=== PATIENT | female | born 1990 | race Hispanic/Latino ===

== ENCOUNTER 2020-02-11 17:03 | Day surgery (SDC) | payer MEDICAID, OTHER ==
[2020-02-11 18:06] VITALS: BP 100/60; TEMP 98.7; BMI 26.3
[2020-02-11] MEDS ORDERED: hydrALAZINE 20 MG/ML VIAL SLOW IVP PRN (18:45)
--- NOTE | 2020-02-11 19:10 | PDOC.FPROB ---
FMR OB H&P: HPI - History of Present Illness Chief Complaint: Dysuria History of Present Illness: 29 y/o @ 22 wks presents to OB triage today due to dysuria which began yesterday. She states that she noticed pink-tinged blood on the toilet paper whenever she wiped. Today her symptoms still continued. She denied having clots or heavy bleeding, fever/chills, vaginal discharge, LOF, itching, vaginal pressure, N/V/D, suprapubic pain, flank pain, abdominal pain, or hematachezia. She endorsed movement and denied having complications so far in this . Primary Care Physician: [facility] FMR OB H&P: Current - Care : 3 Para: 2 Gestational age: 22 weeks Due date: 06/16/2020 FMR OB H&P: History - Past Medical History PMH: Gallstones - OB History OB History: 1st - 2nd - CSX due to distress *both uncomplicated - Surgical History Sx History: Prior CSX - Social History Social History: Denied smoking, tobacco, drug use - Family History Family History: Non contributory FMR OB H&P: Medications - Current Home Medications: Medication Instructions Recorded Confirmed Type Nitrofurantoin Monohyd/M-Cryst 100 mg PO BID #10 cap 02/11/20 Rx [Macrobid] No122/Iron/Folic Acid 1 each PO DAILY 02/11/20 02/11/20 History [ Multi Tablet] Allergies/Adverse Reactions: Allergies Allergy/AdvReac Type Severity Reaction Status Date / Time No Known Allergies Allergy Unverified 02/11/20 18:07 FMR OB H&P: ROS - Review of Systems General: denies: fever/chills Eyes: denies: vision changes Cardiovascular: denies: chest pain, palpitation Respiratory: denies: cough, shortness of breath Gastrointestinal: denies: abdominal pain, bloating, nausea, vomiting, diarrhea, constipation, bright red blood Genitourinary (Female): reports: dysuria. denies: vaginal discharge, contractions, vaginal pressure FMR OB H&P: Vital Signs - Maternal Vital signs: Vital Signs - First Documented Temp Pulse Resp BP 98.7 F 73 16 100/60 02/11/20 17:35 02/11/20 17:35 02/11/20 17:35 02/11/20 17:35 - Heart Tones Baseline: 140 FMR OB H&P: Physical Exam - Physical Exam General: NAD HEENT: normocephalic and atraumatic Heart: RRR General: CTAB Abdomen: soft, gravid FMR OB H&P: A/P - Problem List (1) 22 weeks gestation of Status: Acute Code(s): Z3A.22 - 22 WEEKS GESTATION OF (2) Dysuria during in second trimester Status: Acute Code(s): O26.892 - OTH RELATED CONDITIONS, SECOND TRIMESTER; R30.0 - DYSURIA Disposition: ## Dysuria during , second trimester -symptoms seems urinary in naturevs. vaginal bleeding - survey on 01/28 @ [facility] showed placenta in posterior position -clean catch U/A pending results ## 22 wks gestation of -pt follows up with [facility] - Survey 01/28 showed normal anatomy, hadlock 87.7% -this complicated by hx of CSX and latent TB (according to [facility] notes) -prior pregnancies uncomplicated Will continue to monitor pt. Will await U/A results. Discussion: Date/Time: 02/11/201902 This H&P was discussed with Dr. Pace and Dr. White who agree with the above documentation and plan. Addendum - Attending - Attending Attestation Date/Time: 02/12/20744 I personally evaluated the patient and discussed the management with Dr. Austin on 02/11/2020 I agree with the History, Examination, Assessment and Plan documented above with any addition or exceptions noted below - 29 yo female @22 weeks presents c/o dysuria and small amount blood when wiping after urination since yesterday. Denies any fever, flank or abdominal pain. (+) FM. Afebrile VSS Exam repeated nby me and agree with resident's findings. Labs: U/A- tr protein, 3+ blood, >50RBC, no bacteria or WBC. Renal USG- normal kidneys; no hydronephrosis. A/P: 1) Hematuria and dysuria- will send urine for culture; will treat empirically for UTI given patient's symptoms and d/c abx if culture negative. D/c home.
[2020-02-11 19:13] LABS: Bacteria/HPF None Seen HPF (None Seen); Bilirubin Negative (Negative); Blood, Urine 3+ (Negative); Clarity Turbid (Clear); Glucose, Urine (Dipstick) Normal (Negative); Ketone, Urine Negative (Negative); Leukocyte 25 Leu/uL (Negative); Nitrite Negative (Negative); Protein, Urine (Dipstick) 30 mg/dL (Neg-Trace); RBC/HPF Greater than 50 HPF (0-3); Specific Gravity, Urine 1.023 (1.002-1.036); Squamous Epithelial 0-3 HPF (0-3); Urobilinogen Normal mg/dL (Less than 2); WBC/HPF 0-3 HPF (0-3); pH, Urine 6.5 (5.0-9.0)
--- NOTE | 2020-02-11 20:23 | PDOC.BPN ---
- Brief Progress Note Pt's U/A came back. Showed 3+ blood, 25 leukocyte esterase, and 30 protein. Did not show bacteria, nitrites, or WBCs. Pt denied flank pain/CVA tenderness. Will order renal/bladder U/S to investigate hematuria.
--- NOTE | 2020-02-11 21:25 | ULT ---
RENAL ULTRASOUND: History: Hematuria. FINDINGS: Both kidneys have a normal sonographic appearance. No evidence of hydronephrosis or renal mass. Urina ry bladder is distended and appears normal. Bilateral ureteral jets are identified. IMPRESSION: Unremarkable renal ultrasound. POS: [facility]
--- NOTE | 2020-02-11 21:32 | PDOC.BPN ---
- Brief Progress Note Renal U/S results came back. Unremarkable. No hydronephrosis or masses. Normal sonographic apperance. Will order urine culture and d/c with antibiotics.
== END 2020-02-11 22:15 | disposition home or self-care (01) ==
LOC: ERS 17:03 → L&D/OP 17:04 → EDSTATUS 18:24 → L&D/OP 18:25
PROVIDERS: ATTEND Family Medicine
DX: O26.892 Other specified pregnancy related conditions, second trimester (principal); R30.0 Dysuria; R31.9 Hematuria, unspecified; O34.219 Maternal care for unspecified type scar from previous cesarean delivery; Z3A.22 22 weeks gestation of pregnancy
CPT/HCPCS: 76770; 81001; 87086

== ENCOUNTER 2020-04-20 23:11 | Observation (INO) | payer OTHER, SELFPAY ==
--- NOTE | 2020-04-21 00:10 | PDOC.FPROB ---
FMR OB H&P: HPI - History of Present Illness Chief Complaint: abdominal pain History of Present Illness: Pt is a 29yo @ 31.6wks who presents with 2 days of abdominal pain. Pain located in RUQ and radiates to back. Associated with nausea and vomiting. Worse with certain foods, coke and tamales. Pain comes and goes, and described as sharp. Was seen in ED in November and had RUQ US that showed gallstones/sludge. Recommended she take tylenol for pain. She has been having pain off and on since then, but today it is worse and tylenol is not helping. Had diarrhea 2 weeks ago. +FM, no contractions. No vaginal bleeding or LOF. Primary Care Physician: [facility] FMR OB H&P: Current - Care : 3 Para: 2 Gestational age: 31.6wks Due date: 09/10/2019 Dating Criteria: 10.1 wk sono - OB Labs Blood type: A RH: positive Antibody Screen: negative HIV: negative RPR: negative HepBsAg: negative Rubella: immune Gonorrhea: negative Chlamydia: negative Pap Smear: 11/12/2019 normal 1 hour gtt: 2 hr 76/161/110 H&H: 14/39.7 Platelets: 334 on 11/12/19 - Additional Ultrasound Additional: 12/25/19 US RUQ: hepatic steatosis, hepatomegaly, GB sludge and/or stones, no biliary duct dilatation FMR OB H&P: History - Past Medical History PMH: none - OB History OB History: , this diagnosed with gallstones/sludge in November - 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 NILM 10/2019 - Surgical History Sx History: CS x1 - Social History Social History: no T/A/D - Family History Family History: non-contributory FMR OB H&P: Medications - Current Home Medications: Medication Instructions Recorded Confirmed Type Nitrofurantoin Monohyd/M-Cryst 100 mg PO BID #10 cap 02/11/20 Rx [Macrobid] No122/Iron/Folic Acid 1 each PO DAILY 02/11/20 02/11/20 History [ Multi Tablet] Allergies/Adverse Reactions: Allergies Allergy/AdvReac Type Severity Reaction Status Date / Time No Known Allergies Allergy Verified 04/21/20 00:37 FMR OB H&P: ROS - Review of Systems General: denies: fever/chills, weight/appetite/sleep changes Eyes: reports: vision changes, floaters ENT: denies: nasal congestion, rhinorrhea Cardiovascular: denies: chest pain, palpitation, edema Respiratory: denies: cough, congestion, shortness of breath Gastrointestinal: reports: abdominal pain, nausea, vomiting. denies: diarrhea Genitourinary (Female): denies: dysuria, vaginal bleeding, contractions Musculoskeletal: denies: pain, stiffness Neurologic: reports: headache. denies: numbness, syncope Integumentary: denies: itching, rash Breast: denies: pain/tenderness Endocrine: denies: polydipsia, polyuria Hematologic/Lymphatic: denies: prolonged or excessive bleeding Psychological: denies: depression, anxiety FMR OB H&P: Vital Signs - Maternal Vital signs: BP 107/67, HR 67 - Heart Tones Baseline: 130 Variability: moderate Acceleration: present Deceleration: absent Category: category 1 [place] contractions every: none FMR OB H&P: Physical Exam - Physical Exam General: NAD, awake, alert and oriented HEENT: normocephalic and atraumatic, conjunctiva clear, no scleral icterus, grossly normal vision, grossly normal hearing Neck: supple, FROM Chest: non-tender to palpation Heart: RRR, normal S1/S2, no murmurs/rubs/gallops, no edema General: CTAB, no respiratory distress, no wheezing Abdomen: soft, gravid Deviation from normal: positive Campa's sign Musculoskeletal: normal gait and station, pulses present Neurological: cranial nerves II through XII intact, no focal deficit Skin: no rash Lymphatic: no unusual bruising or bleeding Psychiatric: intact recent and remote memory, normal mood and affect FMR OB H&P: A/P Discussion: Date/Time: 04/21/20 0009 #Cholestasis vs Cholelithiasis -hx of US 11/2019 showing gallstone/sludge -worsening of pain, N/V, PE +campa's sign -pending CBC and CMP -RUQ US ordered to evaluate for choledocholithiasis -BP normotensive, not likely pre-E -zofran for nausea, tylenol 1000mg and morphine 2mg for pain #sIUP - @ 31.6wks by 10.1wk sono -T Cat 1: 130/mod shantanu/+accel, no decel; no contractions -continue routine outpatient f/u This H&P was discussed with Dr. Bailey and Dr. Gama who agree with the above documentation and plan. Addendum - Attending - Attending Attestation Date/Time: 04/21/204 I personally evaluated the patient and discussed the management with Dr. Bailey and resident staff. Will admit for pain control and General Surgery consult in AM. I agree with the History, Examination, Assessment and Plan documented above.
[2020-04-21] MEDS ORDERED: hydrALAZINE 20 MG/ML VIAL SLOW IVP PRN ×2 (00:20→02:18)
[2020-04-21] MEDS ORDERED: Acetaminophen 500 MG TAB PO SCH (00:30)
[2020-04-21] MEDS ORDERED: Ondansetron PF 4 MG/2 ML Vial IVP SCH (00:30)
[2020-04-21 00:37] VITALS: BMI 28.1
[2020-04-21] MEDS ORDERED: Lactated Ringer's 1,000 ML IV SCH ×2 (00:45→02:30)
[2020-04-21] MEDS ORDERED: Morphine 4 MG/ML VIAL SLOW IVP SCH (00:45)
[2020-04-21 01:03] LABS: ALT (SGPT) 44 U/L (8-55); AST (SGOT) 50 U/L (5-34); Albumin 3.1 g/dL (3.5-5.0); Alkaline Phosphatase 158 U/L (40-110); Anion Gap 14 mmol/L (10-20); BUN (Urea Nitrogen) 6 mg/dL (7.0-18.7); Bilirubin, Total 2.2 mg/dL (0.2-1.2); Calc. Creatinine Clearance 128 mL/min (70-130); Calcium 8.4 mg/dL (7.8-10.44); Carbon Dioxide 20 mmol/L (22-29); Chloride 107 mmol/L (98-107); Estimated GFR-MDRD Greater than 90; Globulin 2.9 g/dL (2.4-3.5); Glucose 89 mg/dL (70-105); Potassium 3.1 mmol/L (3.5-5.1); Sodium 138 mmol/L (136-145)
[2020-04-21 01:16] LABS: Band 15 % (5-11); Hemoglobin 11.1 g/dL (12.0-16.0); Lymphocytes 15 % (21-51); MDiff Complete? YES; Mean Corpuscular HGB CONC 34.5 g/dL (32.0-36.0); Mean Corpuscular Hemoglobin 30.7 pg (27.0-31.0); Mean Platelet Volume 8.4 fL (7.4-10.4); Monocytes 7 % (0-10); Neutrophil 62 % (42-75); Platelet Count 257 thou/uL (130-400); RBC Distribution Width 12.3 % (11.5-14.5); White Blood Cell (WBC) Count 8.7 thou/uL (4.8-10.8)
[2020-04-21] MEDS ORDERED: Promethazine HCl 25 MG/ML VIAL IM PRN (02:18)
[2020-04-21] MEDS ORDERED: Acetaminophen 500 MG TAB PO PRN (02:18)
[2020-04-21] MEDS ORDERED: Ondansetron PF 4 MG/2 ML Vial IVP PRN (02:18)
[2020-04-21] MEDS ORDERED: Morphine 4 MG/ML VIAL SLOW IVP PRN ×2 (02:18→02:37)
[2020-04-21] MEDS ORDERED: Morphine 2 MG/ML VIAL SLOW IVP PRN (02:25)
--- NOTE | 2020-04-21 02:47 | PDOC.EVN ---
Event Note - Event Note Event Note: 29yo @ 32.0wks who presents with abdominal pain. A/P #Choledocholithiasis -Spoke with US tech. 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 Alfaro. I agree with the History, Examination, Assessment and Plan documented above.
--- NOTE | 2020-04-21 06:49 | PDOC.OBAPN ---
R OB AP PN: Sub - Interval History Hospital Day: 1 Chief Complaint: RUQ pain Indentification: 29yo @ 32wks EGA. Interval History: Feeling much better this morning. R OB AP PN: Obj - Maternal Vital signs: Selected Entries 04/21/20 00:29 Temperature 97.8 F Pulse Rate 67 Blood Pressure 107/67 [Semi-Fowlers] Respiratory 18 Rate O2 Sat by Pulse 99 Oximetry Oxygen Delivery Room Air Method [facility] OB AP PN: Exam - Physical Exam General: NAD, awake, alert and oriented HEENT: normocephalic and atraumatic, MMM, grossly normal vision, grossly normal hearing Neck: supple, FROM, trachea midline Heart: RRR, normal S1/S2 General: CTAB, no respiratory distress, good air movement Abdomen: soft, gravid, non-tender Skin: no rash, good tugor Lymphatic: no unusual bruising or bleeding, no purpura, no petechia Psychiatric: intact recent and remote memory, good judgement and insight, normal mood and affect [facility] OB AP PN: Data - Labs Lab results: Laboratory Results - last 24 hr 04/21/20 04/21/20 04/21/20 00:35 00:35 00:35 WBC 8.7 RBC 3.60 L Hgb 11.1 L Hct 32.0 L MCV 89.0 MCH 30.7 MCHC 34.5 RDW 12.3 Plt Count 257 MPV 8.4 Neutrophils % (Manual) 62 Band Neuts % (Manual) 15 H Lymphocytes % (Manual) 15 L Monocytes % (Manual) 7 Basophils % (Manual) 1 Sodium 138 Potassium 3.1 L Chloride 107 Carbon Dioxide 20 L Anion Gap 14 BUN 6 L Creatinine 0.69 Estimated GFR (MDRD) Greater than 90 Glucose 89 Calcium 8.4 Total Bilirubin 2.2 H AST 50 H ALT 44 Alkaline Phosphatase 158 H Serum Total Protein 6.0 Albumin 3.1 L Globulin 2.9 Albumin/Globulin Ratio 1.1 L Lipase 23 - Imaging Imaging: No evidence of cholelithiasis. Gallbladder wall thickened with trace pericholecystic fluid. Mild dilation of the common bile duct. R OB AP PN: A/P Disposition: Stable Discussion: Date/Time: 04/21/20 0649 A/P Acute acalculous cholecystitis: -RUQ US- GB wall thickening, pericholecystitic fluid, CBD dilated to 7-8mm, no stones seen, +Campa's sign -Labs: WBC 8.7, T bili 2.2, AST 50 -Will consult gen surg this am. 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 Gama who agrees with the above documentation and plan. Signature: Celso HEATH Addendum - Attending - Attending Attestation Date/Time: 04/21/20 7979 I personally evaluated the patient and discussed the management with Dr. Gill. I agree with the History, Examination, Assessment and Plan documented above.
--- NOTE | 2020-04-21 07:19 | ULT ---
PRELIMINARY REPORT/[facility]/EMERGENCY AFTER HOURS PROCEDURE: This report was discussed with Ariadna Curiel RN by Adeline Herrera on Apr 21, 2020 03:04:00 CDT. Sander kothari electronically signed by Adeline Herrera on April 21, 2020 3:03:56 AM CDT EXAM: US Abdomen Limited, Right Upper Quadrant. CLINICAL HISTORY: HX: RUQ PAIN. SEE NOTES ON LAST IMAGE. THANKS TECHNIQUE: Real-time ultrasound of the right upper quadrant with image documentation. COMPARISON: None provided. FINDINGS: LIVER: Increased echogenicity suggests fatty infiltration. GALLBLADDER: No gallstone. Mild gallbladder wall thickening is noted at 3.6 mm and trace pericholecy stic fluid is seen with a positive sonographic Campa's sign. COMMON BILE DUCT: Mildly dilated at 7.6 mm. PANCREAS: Obscured by overlying bowel gas. RIGHT KIDNEY: Measures 12.5 cm and demonstrates mild hydronephrosis IMPRESSION: The findings suggest acalculous cholecystitis, with mild dilatation of the common bile du ct. Mild right-sided hydronephrosis is noted in this patient who is 31 weeks . ELECTRONICALLY SIGNED BY: Ricardo Lomeli MD Apr 21, 2020 2:55:58 AM CDT FINAL REPORT ULTRASOUND GALLBLADDER RIGHT UPPER QUADRANT: CLINICAL HISTORY: Right upper quadrant pain. COMPARISON: 12/25/2019. FINDINGS: Pancreas: The head and proximal body the pancreas have a normal echotexture. The remainder the pancr eas is obscured by bowel gas. Liver:Heterogeneous echotexture due to hepatic steatosis. Limited evaluation for hepatic masses and i ntrahepatic biliary dilatation. Gallbladder: No sonographic evidence of cholelithiasis. Gallbladder wall thickness is at the upper li mits of normal. Trace pericholecystic fluid. Campa's sign:Positive. Portal Vein: Patent. Appropriate directional flow. Bile ducts: 0.71 cm common bile duct diameter. Right kidney: Mild hydronephrosis. Right kidney measures 12.5 cm in length. IMPRESSION: 1. This report is in agreement with initial report by [facility]. 2. Findings are suggestive of possible acalculous cholecystitis with mild dilatation of the common bi le duct. Patient is 31 weeks . 2. Mild right hydronephrosis. Transcribed Date/Time: 04/21/2020 8:20 AM
[2020-04-21 07:53] VITALS: TEMP 98.2
[2020-04-21 12:47] VITALS: BP 103/62
--- NOTE | 2020-04-21 13:22 | MRI ---
MRI OF THE ABDOMEN WITHOUT IV CONTRAST: INDICATION: Concern for choledocholithiasis. COMPARISON: Right upper quadrant ultrasound dated 04/21/2020 at 1:08 a.m. FINDINGS: There is dropout of signal from the liver on the in-and-out of phase images likely related to fatty i nfiltration. No intraluminal stone is seen within the gallbladder. The common bile duct measures 7. 4 mm. No intraluminal filling defect is seen within the common bile duct. No intrahepatic biliary d uctal dilatation is evident. There is slight prominence of the right renal collecting system which i s likely physiologic related to the patient's advanced gestation of . There is a single int rauterine gestation in vertex presentation incidentally visualized with the placenta being fundal and slightly posterior in location. No focal hepatic lesion is evident. No free fluid is identified. The pancreas, spleen, and adrenal glands appear within normal limits. No lymphadenopathy is evident. No bone marrow signal abnormality is evident. IMPRESSION: 1. No evidence to suggest cholelithiasis or choledocholithiasis. 2. Mild fatty liver. 3. Single intrauterine gestation. POS: [facility]
[2020-04-21 14:11] LABS: #Basophils 0.1 thou/uL (0.0-0.2); #Eosinphils 0.1 thou/uL (0.0-0.7); #Lymphocytes 2.7 thou/uL (1.20-3.40); #Monocytes 0.5 thou/uL (0.11-0.59); #Neutrophils 5.1 thou/uL (1.40-6.50); %Basophils 0.8 % (0.0-1.0); %Eosinophils 1.8 % (0.0-10.0); %Lymphocytes 31.4 % (21.0-51.0); %Monocytes 5.6 % (0.0-10.0); %Neutrophils 60.4 % (42.0-75.0); Hemoglobin 10.7 g/dL (12.0-16.0); Mean Corpuscular HGB CONC 33.7 g/dL (32.0-36.0); Mean Corpuscular Hemoglobin 30.5 pg (27.0-31.0); Mean Corpuscular Volume 90.3 fL (78.0-98.0); Mean Platelet Volume 8.6 fL (7.4-10.4); Platelet Count 235 thou/uL (130-400); RBC Distribution Width 12.4 % (11.5-14.5); Red Blood Cell (RBC) Count 3.51 mill/uL (4.20-5.40); White Blood Cell (WBC) Count 8.4 thou/uL (4.8-10.8)
[2020-04-21 14:32] LABS: ALT (SGPT) 39 U/L (8-55); AST (SGOT) 38 U/L (5-34); Albumin 2.8 g/dL (3.5-5.0); Alkaline Phosphatase 149 U/L (40-110); Anion Gap 13 mmol/L (10-20); BUN (Urea Nitrogen) 5 mg/dL (7.0-18.7); Bilirubin, Total 0.9 mg/dL (0.2-1.2); Calc. Creatinine Clearance 138 mL/min (70-130); Carbon Dioxide 20 mmol/L (22-29); Chloride 110 mmol/L (98-107); Estimated GFR-MDRD Greater than 90; Globulin 2.6 g/dL (2.4-3.5); Glucose 67 mg/dL (70-105); Lipase 167 U/L (8-78); Potassium 3.2 mmol/L (3.5-5.1); Protein, Total 5.4 g/dL (6.0-8.3); Sodium 140 mmol/L (136-145)
--- NOTE | 2020-04-21 16:07 | PDOC.EVN ---
Event Note - Event Note Event Note: Results of MRCP reviewed. Patient does not have evidence of choledocholithiasis or cholecystitis on MRI. Consulted Dr. Farley for further recommendations. Her pain has since resolved. Explained pathology in detail to the patient. Dr. Farley does not recommend surgical intervention at this time. We will d/c home with recommendations for Low Fat diet. She has f/u scheduled at [facility] for Tuesday. Celso HEATH PGY2
--- NOTE | 2020-04-21 16:55 | CON ---
DATE OF CONSULTATION: 04/21/2020 REQUESTING PHYSICIAN: Olive Maldonado MD. HISTORY OF PRESENT ILLNESS: A 29-year-old woman, G3, P2, at 32 weeks gestation, presented with recurrent right upper quadrant abdominal pain after eating. Pain started 2 days ago after a meal which included hot chili. At maximum intensity, pain was rated at "20/10." Pain was associated with some nausea, but no emesis. She denies any fevers or chills. The patient experienced similar pain approximately 3 weeks ago after eating, for which she had a brief hospitalization. At the time of my evaluation, she denies no abdominal pain. She denies any nausea or vomiting. PAST MEDICAL HISTORY: She denies any previous medical problems. PAST SURGICAL HISTORY: x1. PREHOSPITALIZATION MEDICATIONS: Include vitamins. ALLERGIES: THE PATIENT DENIES ANY KNOWN DRUG ALLERGIES. REVIEW OF SYSTEMS: Ten-point review of systems essentially unremarkable except as stated in past medical history and chief complaint. PHYSICAL EXAMINATION: GENERAL: This reveals a 29-year-old normally developed woman, who is otherwise coherent and interactive and appears stated age. The patient is alert and oriented x3. She appears to be in no acute distress at time of my evaluation. Her was at bedside during this visit and the presence of her nurse. VITAL SIGNS: Include blood pressure 103/62, pulse 68, respiratory rate is 16, temperature 98.2 degrees Fahrenheit, oxygen saturation is 100% on room air. HEENT: Pupils equal, round, reactive to light and accommodation. She has no scleral icterus present. HEART: Reveals regular rate and rhythm. No murmurs or gallops auscultated. LUNGS: Clear to auscultation bilaterally. Her breathing is regular and nonlabored. ABDOMEN: Soft and gravid with the uterus that is palpated way above the umbilicus. She has no abdominal tenderness to palpation. LABORATORY FINDINGS: Today includes CBC with 8400 white blood cells, hemoglobin and hematocrit 10.7 and 31.7 respectively. Platelet count is 235,000. Metabolic profile; sodium 140, potassium 3.2, chloride is 110, bicarb is 20, BUN is 5, creatinine 0.64, glucose is 67, total bilirubin is 0.9, AST and ALT are 38 and 39 respectively. Alkaline phosphatase is 149. Serum lipase is 167. I have personally reviewed all radiographic studies including abdominal ultrasound with mild gallbladder wall thickening and small pericholecystic fluid. The gallbladder itself is devoid of any gallstones. The common bile duct is dilated for this patient's age at 7.6 mm in diameter. MRCP, which was obtained today reveals no filling defects in the common bile duct to suggest choledocholithiasis. No gallstones were also noted. IMPRESSION: 1. Acute recurrent acalculous cholecystitis with no clinical or radiographic evidence of choledocholithiasis. 2. Gravid uterus at 32 weeks gestation. RECOMMENDATIONS: Continue with conservative management including a bland diet. Since the patient's abdominal pain has resolved, I recommend we commence diet at this time. It is advisable to continue with a bland diet and conservative management until the patient is able to safely deliver, following which adequate workup which may include a HIDA scan to evaluate possible chronic acalculous cholecystitis. There is no acute surgical indication for this patient at this time. The patient may be discharged home at the discretion of the primary service once tolerating oral intake. Above findings and recommendations were discussed with the patient and her at bedside in the presence of her nurse. They indicated understanding information provided. Thank you again, Dr. Maldonado for allowing me to the opportunity to participate in the care of this patient. Job ID: [id number]
== END 2020-04-21 16:56 | disposition home or self-care (01) ==
LOC: L&D/OP 23:11 → INTOOBSV 04-21 02:18 → L&D 04-21 02:18 → 3SW 04-21 04:03
PROVIDERS: ADMIT Obstetrics & Gynecology; ATTEND Obstetrics & Gynecology
DX: O99.89 Other specified diseases and conditions complicating pregnancy, childbirth and the puerperium (principal); R10.11 Right upper quadrant pain; N13.30 Unspecified hydronephrosis; O26.613 Liver and biliary tract disorders in pregnancy, third trimester; K76.0 Fatty (change of) liver, not elsewhere classified; O34.219 Maternal care for unspecified type scar from previous cesarean delivery; Z3A.31 31 weeks gestation of pregnancy
CPT/HCPCS: 36415; 59025; 74181; 76705; 80053; 82150; 83690; 85007; 85027; 96361; 96374; 96375; 99285; G0378; J2270; J2405

== ENCOUNTER 2020-06-06 08:48 | Outpatient (CLI) | payer OTHER ==
[2020-06-06 17:49] LABS: SARS-CoV-2 MS2 Positive; SARS-CoV-2 N Gene Negative; SARS-CoV-2 S Gene Negative; SARS-CoV-2 by NAA Not Detected (NotDetected); SARS-CoV-2 orf1ab Negative
== END 2020-06-06 08:49 | disposition home or self-care (01) ==
LOC: LABBT 08:48
PROVIDERS: ATTEND Family Medicine
DX: Z12.31 Encounter for screening mammogram for malignant neoplasm of breast (principal)
CPT/HCPCS: 87635; U0003

== ENCOUNTER 2020-06-09 05:31 | Inpatient (IN) | payer MEDICAID, OTHER, SELFPAY ==
[2020-06-09] MEDS ORDERED: Ondansetron PF 4 MG/2 ML Vial IVP PRN ×3 (06:01→10:52)
[2020-06-09] MEDS ORDERED: hydrALAZINE 20 MG/ML VIAL SLOW IVP PRN ×2 (06:01→10:52)
[2020-06-09] MEDS ORDERED: Promethazine HCl 25 MG/ML VIAL IM PRN ×2 (06:01→09:40)
[2020-06-09] MEDS ORDERED: Acetaminophen 500 MG TAB PO PRN (06:01)
[2020-06-09] MEDS ORDERED: Bicitra 30 ML UDCUP PO SCH (06:15)
[2020-06-09] MEDS ORDERED: Lactated Ringer's 1,000 ML IV SCH (06:15)
[2020-06-09] MEDS ORDERED: CEFAZOLIN 2 GM in Premix Bag 1 BAG IVPB SCH (06:15)
[2020-06-09 06:29] LABS: Hemoglobin 13.9 g/dL (12.0-16.0); Mean Corpuscular Hemoglobin 31.1 pg (27.0-31.0); Mean Corpuscular Volume 88.7 fL (78.0-98.0); Platelet Count 294 thou/uL (130-400); Red Blood Cell (RBC) Count 4.46 mill/uL (4.20-5.40); White Blood Cell (WBC) Count 12.3 thou/uL (4.8-10.8)
--- NOTE | 2020-06-09 06:43 | PDOC.FPROB ---
FMR OB H&P: HPI - History of Present Illness Chief Complaint: rLTCS at 39.0 wks History of Present Illness: 29 y/o presents for rLTCS at 39.0 wks by LMP c/w 10.1 wk sono due to prior for NRFHT. She denies contractions, LOF, vaginal bleeding. Endorses good movement. Endorses mild constipation over the past 2 days. She otherwise does not have any complaints this morning. was complicated by cholelithiasis, cholecystectomy was not performed. Also found to have latent TB during workup, needs to be treated post- in outpatient setting. Primary Care Physician: MARIA L Bailey FMR OB H&P: Current - Care : 3 Para: 2 Gestational age: 39.0 Due date: 06/16/2020 - OB Labs Blood type: A RH: positive Antibody Screen: negative HIV: negative RPR: negative HepBsAg: negative Rubella: immune Quad screen: negative Gonorrhea: negative Chlamydia: negative Pap Smear: nilm 10/2019 3 hour GTT: 2 ht GTT passed GBS: negative - First Trimester Ultrasound First trimester: 10.1 wk sono c/w LMP - Anatomy Survey Anatomy survey: grossly normal FMR OB H&P: History - Past Medical History PMH: Gallstones - OB History OB History: 1st - 2nd - CSX due to distress *both uncomplicated - Surgical History Sx History: Prior CSX - Social History Social History: Denied smoking, tobacco, drug use FMR OB H&P: Medications - Current Home Medications: Medication Instructions Recorded Confirmed Type No122/Iron/Folic Acid 1 each PO DAILY 02/11/20 06/09/20 History [ Multi Tablet] Acetaminophen [Tylenol Extra 1,000 mg PO Q6H PRN tab 04/21/20 06/09/20 Rx Strength] Allergies/Adverse Reactions: Allergies Allergy/AdvReac Type Severity Reaction Status Date / Time No Known Allergies Allergy Verified 06/09/20 06:08 FMR OB H&P: ROS - Review of Systems General: denies: fever/chills, fatigue Eyes: denies: vision changes ENT: denies: nasal congestion, rhinorrhea, sore throat Cardiovascular: denies: chest pain, palpitation, edema Respiratory: denies: cough, congestion, shortness of breath Gastrointestinal: reports: constipation. denies: abdominal pain, diarrhea Genitourinary (Female): reports: vaginal discharge. denies: dysuria, hematuria, polyuria, vaginal pain, vaginal bleeding, contractions, vaginal pressure Musculoskeletal: reports: pain Neurologic: denies: headache Integumentary: denies: rash Endocrine: denies: polyuria FMR OB H&P: Vital Signs - Maternal Vital signs: BP: 100/64 HR: 54 SpO2 98% on RA - Heart Tones Baseline: 125 Variability: moderate Acceleration: present Deceleration: absent Category: category 1 [place] contractions every: >10 min FMR OB H&P: Physical Exam - Physical Exam General: NAD, awake, alert and oriented HEENT: normocephalic and atraumatic, MMM, conjunctiva clear, no scleral icterus, grossly normal vision, grossly normal hearing, good dention Neck: supple, no LAD Heart: RRR, normal S1/S2, no murmurs/rubs/gallops, pulses present, no edema General: CTAB, no respiratory distress, no rales/rhonchi, no wheezing Abdomen: soft, gravid, non-tender Musculoskeletal: pulses present Neurological: sensation to pain,touch and proprioception grossly normal, DTR +2, no clonus Skin: no rash Lymphatic: no unusual bruising or bleeding Psychiatric: intact recent and remote memory, good judgement and insight, normal mood and affect - Pelvic Exam Membranes: intact Presentation: cephalic on sono FMR OB H&P: Results - Labs Lab results: Laboratory Results - last 24 hr 06/09/20 06:20 WBC 12.3 H RBC 4.46 Hgb 13.9 Hct 39.6 MCV 88.7 MCH 31.1 H MCHC 35.0 RDW 13.0 Plt Count 294 MPV 9.0 FMR OB H&P: A/P Disposition: sIUP @ 39.0 wks @ 39.0 wks presents for rLTCS. Prior c sxn for NRFHT. - cephalic on bedside sono - plans for breast and bottle feeding - abx: ancef Latent TB Positive Quant gold during care, CXR obtained outpatient. - will need outpatient treatment post- Hx cholelithiasis Evaluated by general surgery 04/2020, cholecystectomy was deferred at that time. - currently asymptomatic - may need HIDA scan for evaluation of chronic acalculous cholecystitis in post- period if symptoms recur Constipation - bowel regimen after procedure Discussion: Date/Time: 06/09/20 0642 This H&P was discussed with [] and [] who agree with the above documentation and plan. Addendum - Attending - Attending Attestation Date/Time: 06/09/2040 I personally evaluated the patient and discussed the management with resident team. I agree with the History, Examination, Assessment and Plan documented above with any addition or exceptions noted below. R/B/A discussed. Questions answered. Will proceed with RLTCS. Ranjeet
[2020-06-09 07:05] LABS: Syphilis Antibody Nonreactive (Nonreactive); Syphilis Antibody Index 0.04 S/CO (<1.00 Non-Reactive)
[2020-06-09 07:06] LABS: HBSAg Index 0.15 S/CO (0-0.99); Hep B Surf Ag Non-Reactive S/CO (NonReactive)
[2020-06-09] MEDS ORDERED: ePHEDrine 50 MG/ML VIAL ONE (07:33)
[2020-06-09] MEDS ORDERED: PHENYLEPHRINE-NS 100 MCG/ML 10 ML SYRINGE ONE (07:33)
[2020-06-09] MEDS ORDERED: Morphine PF 10 MG/10 ML VIAL ONE (07:33)
[2020-06-09] MEDS ORDERED: Ondansetron PF 4 MG/2 ML Vial ONE (07:33)
[2020-06-09] MEDS ORDERED: Ketorolac Tromethamine 30 MG/ML VIAL ONE (07:33)
[2020-06-09] MEDS ORDERED: Oxytocin 10 UNITS/ML VIAL ONE ×3 (07:33→09:09)
[2020-06-09] MEDS ORDERED: Sodium Chloride 0.9% 10 ML ONE (07:35)
[2020-06-09] MEDS ORDERED: Glycopyrrolate 0.2 MG/ML 5 ML SYRINGE ONE (08:01)
[2020-06-09] MEDS ORDERED: Atropine Sulfate 0.4 mg/1 ml Vial ONE (08:02)
[2020-06-09] MEDS ORDERED: Fentanyl 100 MCG/2 ML VIAL ONE (08:25)
[2020-06-09] MEDS ORDERED: L&D-Morphine 4 MG/ML VIAL SLOW IVP PRN (09:40)
[2020-06-09] MEDS ORDERED: Promethazine HCl 25 MG SUPP PR PRN (09:40)
[2020-06-09] MEDS ORDERED: HYDROmorphone 2 MG/ML VIAL SLOW IVP PRN (09:40)
[2020-06-09] MEDS ORDERED: Naloxone HCl 0.4 mg/ml Vial IVP PRN ×2 (09:40)
[2020-06-09] MEDS ORDERED: diphenhydrAMINE 50 MG/ML VIAL IVP PRN (09:40)
[2020-06-09] MEDS ORDERED: Meperidine HCl/PF 25 MG/ML VIAL SLOW IVP PRN (09:40)
[2020-06-09] MEDS ORDERED: Naloxone HCl 0.4 mg/ml Vial IV PRN (09:40)
[2020-06-09] MEDS ORDERED: Ondansetron HCl/PF 4 MG/2 ML Vial IVP PRN (09:40)
[2020-06-09] MEDS ORDERED: Communication Order-Pharmacy FS SCH (09:45)
[2020-06-09] MEDS ORDERED: Bisacodyl 10 MG SUPP PR PRN (10:52)
[2020-06-09] MEDS ORDERED: Lanolin Ointment 7 GM TUBE TOP PRN (10:52)
[2020-06-09] MEDS: Prenatal Vitamin 1 TAB PO SCH (13:18)
[2020-06-09] MEDS: Ferrous Sulfate 325 MG TAB PO SCH ×2 (13:18→23:35)
[2020-06-09] MEDS: Ibuprofen 800 MG TAB PO SCH ×2 (14:42→23:35)
--- NOTE | 2020-06-09 14:44 | PDOC.BPN ---
<Beena Haynes - Last Filed: 06/09/20 14:40> - Brief Progress Note Encounter Date: 06/09/20 Encounter Time: 14:00 4 Hour Post-Operative Note S: Pt reports she is feeling well. Pain is controlled. Feeling hungry. O: Appropriately tender to palpation, clean/dry/intact dressing over incision, minimal vaginal bleeding on cristian A: Delivery QBL 505, minimal vaginal bleeding since procedure. UOP 480 mL in recovery area, approx 200 mL over past 3 hours on post-. P: Bleeding controlled, will DC pitocin. Advance diet as tolerated. Continue to monitor UOP. Continue to monitor vaginal bleeding. BInocente Haynes, PGY -1 <Chelsy Vilchis - Last Filed: 06/09/20 17:43> - Brief Progress Note Attending note: Patient doing well. No pp complications but low normal UOP. No significant vaginal bleeding will stop 2nd bag of pit to attempt to increase UOP. VSS. Continue to monitor. Ranjeet
[2020-06-09] MEDS: Ketorolac Tromethamine 30 MG/ML VIAL IVP PRN (16:46)
--- NOTE | 2020-06-09 20:39 | PDOC.OPDEL ---
OB Operative/Delivery Note - Additional Findings/Plan Compilations/Other Findings: Procedure Note Date of Procedure: 06/09/20 Resident Surgeon: Mag Bailey MD PGY-3 & Tamara Tinsley DO PGY-2 Attending Surgeon: Chelsy Vilchis MD Procedure: Repeat low transverse caesarean section Preoperative Diagnosis: 1) Term intrauterine 2) Latent TB 3) Hx of LTCS Postoperative Diagnosis: 1) Term intrauterine , delivered 2) Latent TB 3) Hx of LTCS Anesthesia: spinal Indications: The patient is a 29 year old female at 39.0 weeks gestation who presents for a repeat scheduled delivered at 0823 on 06/09 Procedure in Detail: After risks, benefits, and alternatives were explained to the patient, she gave informed consent. Pre-operative antibiotics included Cefazolin 2 gram IV. The patient was taken to the operating room and spinal anesthesia was initiated. She was placed in the supine position with a left tilt and prepped and draped in usual sterile fashion. A Pfannenstiel incision was made with a scalpel and carried down to the level of the fascia which was sharply nicked. The fascial cut was extended bilaterally with Sylvester scissors. The inferior and superior edges of the cut fascial edges were elevated with Mallika clamps and the underlying rectus muscles were sharply and bluntly dissected free. The recti were divided digitally and retracted manually. The peritoneum was entered bluntly and retracted manually. Burke-O placed. A low transverse score was made with the scalpel and the uterus was entered in the midline with the scalpel. Light meconium fluid was seen. The hysterotomy was extended manually. The infant was noted to be vertex and was easily delivered by fundal pressure. Mouth and nares were bulb suctioned. Cord clamped and cut and grossly normal male was handed to waiting nurse. Cord blood was obtained. Placenta was expectantly extracted, found to be intact with 3 vessel cord and discarded. The uterus was externalized and the endometrium was curetted with a dry lap. The uterus was closed with a running locking #1 Monocryl suture fol lowed by running nonlocking imbricating suture with #1 Monocryl. Following this hemostasis was noted. The abdomen was suctioned free of clots. The uterus was internalized and the hysterotomy was noted to have a small area of bleeding on maternal left side of hysterotomy which was hemostatic after figure of 8 using #1 Monocryl. A small area of serosa surrounding the perivesicular fat was noted to be disrupted, for this reason the bladder was back-filled with formula. No leakage of formula into the abdomen was noted. This area of serosa was closed with 4-0 Monocryl. The fascia was closed with a running non-locking 0-PDS suture. The subcutaneous tissue was irrigated and bleeders were hemostatic after bovie cautery. Subcutaneous tissue was closed with 2-0 plain gut. The skin was approximated with tad and a pressure dressing was placed. All counts were correct. The patient tolerated the procedure well and was taken to the recovery room in stable condition. Quantitative Blood Loss: 505ml Complications: None Specimens: Cord blood sent to lab for blood type Findings: Grossly normal male/female infant with Apgars of 8 and 9. Grossly normal placenta with 3 vessel cord discarded. Drains: Cam to gravity draining clear urine, formula after backfill Attending Note: I was present and participated in the above mention procedure. Largely uncomplicated. Due to minor abdominal adhesions concern for serosa- bladder extension upon entry. After bladder was back filled no areas of concern were identified. Small area of serosa was repaired. Hysterotomy repaired without complications. Hemostatic at end of case. Patient was sent to postop in stable condition and then transferred to for routine care. Ranjeet
[2020-06-09 21:19] LABS: Anion Gap 14 mmol/L (10-20); BUN (Urea Nitrogen) 11 mg/dL (7.0-18.7); Calc. Creatinine Clearance 135 mL/min (70-130); Calcium 8.1 mg/dL (7.8-10.44); Carbon Dioxide 22 mmol/L (22-29); Chloride 107 mmol/L (98-107); Estimated GFR-MDRD Greater than 90; Glucose 71 mg/dL (70-105); Potassium 3.7 mmol/L (3.5-5.1); Sodium 139 mmol/L (136-145)
[2020-06-09 22:27] LABS: Bacteria/HPF None Seen HPF (None Seen); Bilirubin Negative (Negative); Blood, Urine 1+ (Negative); Clarity Clear (Clear); Glucose, Urine (Dipstick) Normal (Negative); Ketone, Urine Negative (Negative); Leukocyte Negative Leu/uL (Negative); Nitrite Negative (Negative); Protein, Urine (Dipstick) Negative (Neg-Trace); RBC/HPF 0-3 HPF (0-3); Specific Gravity, Urine 1.004 (1.002-1.036); Squamous Epithelial 0-3 HPF (0-3); Urobilinogen Normal mg/dL (Less than 2); WBC/HPF 0-3 HPF (0-3)
[2020-06-09 22:44] LABS: Creatinine, Urine 25.61 mg/dL (47-110)
[2020-06-10] MEDS: Ketorolac Tromethamine 30 MG/ML VIAL IVP PRN (02:15)
[2020-06-10] MEDS: Ibuprofen 800 MG TAB PO SCH ×4 (05:23→20:41)
[2020-06-10 06:06] LABS: Hemoglobin 10.2 g/dL (12.0-16.0); Mean Corpuscular HGB CONC 33.9 g/dL (32.0-36.0); Mean Corpuscular Hemoglobin 30.5 pg (27.0-31.0); Mean Platelet Volume 8.6 fL (7.4-10.4); Platelet Count 221 thou/uL (130-400); RBC Distribution Width 12.8 % (11.5-14.5); Red Blood Cell (RBC) Count 3.36 mill/uL (4.20-5.40); White Blood Cell (WBC) Count 10.5 thou/uL (4.8-10.8)
[2020-06-10] MEDS ORDERED: Milk Of Magnesia 30 ML UDCUP PO PRN (07:29)
--- NOTE | 2020-06-10 07:32 | PDOC.PP ---
Post Progress Note Post Day #: 1 Subjective: Pain well controlled with ibuprofen. Breast and bottle feeding. Lochia about like a period. Not able to tolerate PO yesterday due to nausea but is hungry this morning. Passing gas and ambulating. PO intake tolerated: yes Flatus: yes Ambulation: yes Vital Signs (12 hours) Temp Pulse Resp BP Pulse Ox 06/10/20 04:15 98.9 F 70 16 96/52 L 97 06/10/20 00:15 99.2 F 69 16 101/56 L 99 06/09/20 19:46 98.3 F 59 L 16 97/54 L 96 Weight Weight 69.853 kg - Physical Examination General: NAD Cardiovascular: no m/r/g, RRR Respiratory: clear to auscultation bilaterally, non-labored breathing Abdominal: + bowel sounds, appropriately TTP Fundus firm & at: umbilicus Skin: CS incision dry & intact (covered with dressing) Neurological: no gross focal deficits Psychiatric: A&Ox3, normal affect Result Diagrams: 06/10/20 05:52 06/09/20 20:51 Additional Labs: Post Labs Hep Bs Antigen Non-Reactive S/CO (NonReactive) 06/09/20 06:20 Blood Type A POSITIVE 06/09/20 06:44 - Assessment/Plan sIUP, delivered RLTCS - POD#1, will need staple removal - Total QBL: 697ml. Hgb 13.9-> 10.2 - Meeting PP milestones. Continue routine care - F/u at [facility] in 1 week. Latent TB Positive Quant gold during care, CXR obtained outpatient. - will need outpatient treatment post- Hx cholelithiasis Evaluated by general surgery 04/2020, cholecystectomy was deferred at that time. - currently asymptomatic - may need HIDA scan for evaluation of chronic acalculous cholecystitis in post- period if symptoms recur Addendum - Attending - Attending Attestation Date/Time: 06/10/20 1100 I personally evaluated the patient and discussed the management with resident team I agree with the History, Examination, Assessment and Plan documented above with any addition or exceptions noted below. Stable. Doing well. No acute changes. Lochia appropriate. Tolerating PO well. Pain controlled. Breast feeding. VS reviewed. Afebrile. Good UOP. Incision healing well. Bisi in place. - POD/PPD#1: Continue routine care. Monitor. - RLTCS, #2 - Breast feeding: consulted to assist. Dispo: Continue inpatient today. Monitor. Possible d/c tomorrow. ABrayMD
[2020-06-10] MEDS: Prenatal Vitamin 1 TAB PO SCH (08:07)
[2020-06-10] MEDS: Acetaminophen/Codeine 30-300mg Tablet PO PRN ×3 (08:08→20:42)
[2020-06-10] MEDS: Polyethylene Glycol 3350 17 GM Packet PO SCH (08:12)
[2020-06-10] MEDS ORDERED: Adacel (T-DAP) 0.5 ML SYRINGE IM ONE (09:00)
[2020-06-10] MEDS: Ferrous Sulfate 325 MG TAB PO SCH ×2 (10:02→21:46)
[2020-06-11] MEDS: Acetaminophen/Codeine 30-300mg Tablet PO PRN ×2 (05:11→09:11)
[2020-06-11] MEDS: Ibuprofen 800 MG TAB PO SCH (05:11)
[2020-06-11] MEDS: Ferrous Sulfate 325 MG TAB PO SCH (07:13)
--- NOTE | 2020-06-11 07:42 | PDOC.PP ---
Post Progress Note Post Day #: 2 Subjective: Pain well controlled. Lochia about like period. Met with yesterday and is attempting and pumping. Denies difficulty with urination. Passing gas. Ambulating and tolerating PO. PO intake tolerated: yes Flatus: yes Ambulation: yes Vital Signs (12 hours) Temp Pulse Resp BP Pulse Ox 06/11/20 05:10 98.3 F 63 16 118/69 06/10/20 23:25 98.1 F 65 16 90/52 L 06/10/20 19:55 98.3 F 65 12 96/56 L 97 Weight Weight 69.853 kg - Physical Examination General: NAD Cardiovascular: no m/r/g, RRR Respiratory: clear to auscultation bilaterally, non-labored breathing Abdominal: + bowel sounds, appropriately TTP Fundus firm & at: umbilicus Skin: CS incision dry & intact Neurological: no gross focal deficits Psychiatric: A&Ox3, normal affect Result Diagrams: 06/10/20 05:52 06/09/20 20:51 Additional Labs: Post Labs Hep Bs Antigen Non-Reactive S/CO (NonReactive) 06/09/20 06:20 Blood Type A POSITIVE 06/09/20 06:44 - Assessment/Plan sIUP, delivered RLTCS - POD#2, will need staple removal - Total QBL: 699ml. Hgb 13.9-> 10.2 - Meeting PP milestones. Continue routine care - F/u at [facility] in 1 week. Latent TB Positive Quant gold during care, CXR obtained outpatient. - will need outpatient treatment post- Hx cholelithiasis Evaluated by general surgery 04/2020, cholecystectomy was deferred at that time. - currently asymptomatic - may need HIDA scan for evaluation of chronic acalculous cholecystitis in post- period if symptoms recur Addendum - Attending - Attending Attestation Date/Time: 06/11/20 1033 I personally evaluated the patient and discussed the management with resident team I agree with the History, Examination, Assessment and Plan documented above with any addition or exceptions noted below. Doing well. No acute changes. Meeting pp milestones. to follow up later today. Lochia appropriate. Incision healing well. Will need tad out on Tuesday. ABrayMD
[2020-06-11 08:08] VITALS: BP 105/63; TEMP 98.2
[2020-06-11] MEDS: Prenatal Vitamin 1 TAB PO SCH (09:12)
[2020-06-11] MEDS: Polyethylene Glycol 3350 17 GM Packet PO SCH (09:12)
--- NOTE | 2020-06-13 08:41 | PQF ---
CLINICAL DOCUMENTATION CLARIFICATION FORM: Dear : Chelsy Vilchsi Date / Time: 06/13/2020 Please exercise your independent, professional judgment in responding to the clarification form. Clinical indicators are provided on the bottom of this form for your review Please check appropriate box(es): [ x] Bladder serosal disruption is a complication during section delivery [ ] Bladder serosal disruption is not a complication, only incidental occurrence inherent to the section delivery [ ] Other diagnosis [ ] Unable to determine In addition, please specify: Present on Admission (POA): [ ] Yes [ x] No [ ] Unable to determine To be completed by CDI/Coding staff for physician review: Present Clinical Indicators - Signs / Symptoms / Labs Results and Location in Medical Record [ x ] A small area of serosa surrounding the perivascular fat was noted to be disrupted, for this bladder was back filled with formula Labor and delivery note 06/09 by Chelsy Vilchis MD [ x ] Due to minor abdominal adhesions concern for serosa-bladder extension upon entry. After bladder was back filled, no areas of concern were identified. Small area of serosa was repaired Labor and delivery note 06/09 by Chelsy Vilchis MD Present Risk Factors Results and Location in Medical Record [ x ] Repeat low transverse section delivery Labor and delivery note 06/09 by Chelsy Vilchis MD Present Treatments Results and Location in Medical Record [ x ] Repair of bladder serosa Labor and delivery note 06/09 by Chelsy Vilchis MD CDS/Consumer Relations Complaint Clerk Signature: [id number] Phone #: Date/Time: 06/13/2020 This is a permanent part of the Medical Record This occurred due to adhesion but no disruption of the bladder occurred. Ranjeet CH
== END 2020-06-11 12:28 | disposition home or self-care (01) | DRG 787 ==
LOC: L&D 05:31 → 3SW 12:25
PROVIDERS: ADMIT Student in an Organized Health Care Education/Training Program; ATTEND Student in an Organized Health Care Education/Training Program
PROC: 10D00Z1 Extraction of Products of Conception, Low, Open Approach (ICD-10-PCS; principal; 2020-06-09)
PROC: 0TQB0ZZ Repair Bladder, Open Approach (ICD-10-PCS; 2020-06-09)
DX: O34.211 Maternal care for low transverse scar from previous cesarean delivery (principal); O71.5 Other obstetric injury to pelvic organs; Z3A.39 39 weeks gestation of pregnancy; Z37.0 Single live birth; Z22.7 Latent tuberculosis; O99.62 Diseases of the digestive system complicating childbirth; K59.00 Constipation, unspecified
CPT/HCPCS: 36415; 51702; 80048; 81001; 82570; 83930; 83935; 84300; 85027; 86780; 86850; 86900; 86901; 87340; J0461; J1885; J2270; J2405; J3010; J3490

== ENCOUNTER 2020-09-24 13:55 | Outpatient (CLI) | payer OTHER ==
--- NOTE | 2020-09-24 14:25 | RAD ---
EXAM: Chest PA and lateral: HISTORY: Cough, TB positive blood test COMPARISON: None FINDINGS: Heart size:Within normal limits. Lungs:Clear of acute process. No confluent pneumonia, overt edema, pleural effusion, or other acute process. IMPRESSION: No significant acute intrathoracic disease. No evidence for active TB.
== END 2020-09-24 13:56 | disposition home or self-care (01) ==
LOC: BICRAD 13:55
PROVIDERS: ATTEND Nurse Practitioner Women's Health
DX: A15.0 Tuberculosis of lung (principal)
CPT/HCPCS: 71046